=== PATIENT | male | born 2000 | race Two or more races ===

== ENCOUNTER 2021-05-09 18:32 | Emergency (ER) | payer OTHER, SELFPAY ==
--- NOTE | ~2021-05-09 | XR_ITS ---
EXAMINATION: XR HAND, RIGHT CLINICAL INFORMATION: Pain. Injury COMPARISON: None TECHNIQUE: PA, lateral, and oblique views of the right hand. FINDINGS: The alignment is normal. No fracture, focal lesion or periosteal new bone. XR/XR hand RT min 3V IMPRESSION: No fracture or subluxation
[2021-05-09 18:35] VITALS: BP 129/60; PULSE 77; RESP 18; TEMP 36.7; O2SAT 97; BMI 31.1
--- NOTE | 2021-05-09 18:54 | ED.EXTPRO ---
HPI - Extremity Problem General Chief complaint: Extremity Injury, Upper Stated complaint: Hand injury at work Time Seen by Provider: 05/09/21 18:54 History of Present Illness HPI Narrative: Patient complains of right hand pain after he dropped a heavy parcel on his hand at work several days ago and he has continued swelling and pain Related Data Allergies Allergy/AdvReac Type Severity Reaction Status Date / Time No Known Allergies Allergy Verified 05/09/21 18:35 Review of Systems Review of Systems: Positive for right hand pain Negative for neck pain back pain numbness weakness or tingling no skin rash no other joint pains Yes all other systems are reviewed and are negative PMFSH Past Medical History Source: nursing notes reviewed Medical History (Updated 05/10/21 @ 00:01 by Evens Sheehan) Asthma Hernia Social History Social History Advance Directives: No Advance Directives Information Provided: No Physical Exam Vital Signs: Vital Signs: Last Vital Signs Temp 98.1 F 05/09/21 18:35 Pulse 77 05/09/21 18:35 Resp 18 05/09/21 18:35 BP 129/60 05/09/21 18:35 Pulse Ox 97 05/09/21 18:35 Body Mass Index 31.1 General appearance no acute distress Head is normocephalic atraumatic Neck is supple Respiratory no distress Extremity exam the dorsal right hand has mild ecchymosis swelling and tenderness, there is no focal bony tenderness, there is full range of motion in the fingers in the wrist but it is uncomfortable and it is neurovascular intact distal with skin intact Neuro no focal motor or sensory deficits Course Course Course Narrative: Right hand x-ray was normal without fracture and patient is advised to follow with work [facility] if needed for any other treatment or evaluation if hand pain from likely contusion does not resolve Discharge Plan Discharge Clinical Impression: Contusion of hand, right Patient Disposition: Home, Self-Care Additional Instructions: x-ray of hand was normal so this is likely a contusion to the hand which should improve in several days If not better next week follow with work [facility] for further evaluation Referrals: [facility] [Provider Group] - 2 days ( right hand injury, x-ray negative) Stand Alone Forms: Work/School Release Interventions: ED Discharge Assessment Last Done: 05/09/21 19:57 Discharge Date/Time: 05/09/21 20:00
== END 2021-05-09 20:00 | disposition home or self-care (01) ==
PROVIDERS: Emergency Provider Internal Medicine
DX: S60.221A Contusion of right hand, initial encounter (principal); W20.8XXA Other cause of strike by thrown, projected or falling object, initial encounter; Y93.89 Activity, other specified; Y92.9 Unspecified place or not applicable; Y99.0 Civilian activity done for income or pay
CPT/HCPCS: 73130; 99283

== ENCOUNTER 2021-09-02 19:55 | Emergency (ER) | payer OTHER, SELFPAY ==
--- NOTE | ~2021-09-02 | XR_ITS ---
EXAMINATION: XR CHEST CLINICAL INFORMATION: Cough and fever COMPARISON: None TECHNIQUE: Frontal view of the chest was obtained. FINDINGS: The lungs are well expanded. There is no focal consolidation, edema, or effusion. No pneumothorax. The cardiomediastinal silhouette is within normal limits. No acute osseous abnormality. XR/XR chest 1V IMPRESSION: No acute pulmonary finding.
[2021-09-02 20:37] VITALS: BP 103/52; PULSE 94; RESP 18; TEMP 39.1; O2SAT 100; BMI 30.3
[2021-09-02 20:42] LABS: COVID-19 Test Negative (Negative)
--- NOTE | 2021-09-02 21:17 | ED.URI ---
HPI - URI/Sore Throat General Chief Complaint: Upper Respiratory Symptoms Stated Complaint: fever and weakness Time Seen by Provider: 09/02/21 21:17 Source: patient Mode of arrival: ambulatory Limitations: no limitations History of Present Illness MD elicited complaint: fever and sore throat Onset (ago): day(s) (2) Consistency: constant Severity: moderate Able to tolerate fluids by mouth: Yes Exacerbating factors: swallowing Relieving factors: nothing Associated symptoms: fever and sore throat Treatments prior to arrival: none Related Data Previous Rx's Medication Instructions Recorded amoxicillin 500 mg tablet 500 mg PO BID 10 Days #20 tab 09/02/21 Allergies Allergy/AdvReac Type Severity Reaction Status Date / Time No Known Allergies Allergy Verified 09/02/21 20:37 Review of Systems Review of Systems: Constitutional : positive Fever, positive Chills, no fatigue, no Malaise ENT/Mouth : positive sore throat, norunny nose Eyes: No Discharge Cardiovascular : No Chest Pain, No SOB Respiratory : pos Cough, No Sputum Gastrointestinal : No Nausea, No Vomiting, No Diarrhea Genitourinary : No Dysuria, No Urinary Frequency Musculoskeletal : positive Myalgia Skin : No rash Neuro : No Headache PMFSH Past Medical History Attestation statement: The following information was validated with the patient. Medical History Asthma Hernia Social History Social History (Updated 09/02/21 @ 21:33 by Lissy Melendez DO) Patient Tobacco Use Status: Never used Tobacco Advance Directives: No Advance Directives Information Provided: No Physical Exam Vital Signs: Vital Signs: Last Vital Signs Temp 102.3 F H 09/02/21 20:37 Pulse 94 09/02/21 20:37 Resp 18 09/02/21 20:37 BP 103/52 L 09/02/21 20:37 Pulse Ox 100 09/02/21 20:37 Body Mass Index 30.3 Appearance: Alert. Oriented X3. No acute distress. Eyes: Pupils equal, round and reactive to light. ENT: Pharynx moderate generalized erythema with exudates uvula midline tolerating secretions Neck: Normal inspection. Neck supple. CVS: Normal heart rate and rhythm. Pulses normal. Respiratory: No respiratory distress. Breath sounds normal. Abdomen: Soft and nontender. Skin: Skin warm and dry. Normal skin color. Normal skin turgor. Extremities: No lower extremity edema. Neuro: Oriented X 3. No motor deficit. No sensory deficit. MDM - URI/Sore Throat MDM Narrative Medical decision making narrative: 21 yo male otherwise healthy here with sore throat and fevers - exam very concerning for strep throat - swab/COVID/CXR ordered, given exam - started on motrin and amoxicillin. not toxic no concern for deeper space infection Lab Data Labs: Lab Results 09/02/21 09/02/21 Range/Units 20:07 21:00 COVID-19 (VEENA) Negative (Negative) COVID-19 Clin Com See Note S. pyogenes GrpA MONICA Negative (Negative) Discharge Plan Discharge Clinical Impression: Pharyngitis Patient Disposition: Home, Self-Care Instructions: Pharyngitis (ED) Additional Instructions: return to ED for any worsening symptoms or concerns COVID negative Prescriptions: New amoxicillin 500 mg tablet 500 mg PO BID 10 Days Qty: 20 RF: 0 Stand Alone Forms: Work/School Release
[2021-09-02 21:18] LABS: IDNOW Serial# 9DD0AD1C; Strep A Nucleic Acid Negative (Negative)
[2021-09-02] MEDS: Amoxicillin 500 MG CAPSULE PO (21:44)
[2021-09-02] MEDS: Ibuprofen 600 MG TABLET PO (21:44)
== END 2021-09-02 21:49 | disposition home or self-care (01) ==
PROVIDERS: Emergency Provider Emergency Medicine
DX: J02.9 Acute pharyngitis, unspecified (principal); J45.909 Unspecified asthma, uncomplicated; Z20.822 Contact with and (suspected) exposure to COVID-19
CPT/HCPCS: 36415; 71045; 87635; 87651; 99283; 99284